=== PATIENT | male | born 1965 | race Two or more races ===

== ENCOUNTER 2023-09-29 08:21 | Emergency (ER) | payer OTHER ==
[~2023-09-29] VITALS: Ht 170.2 cm; Wt 63.6 kg
[~2023-09-29 08:21] MED LIST: TRAM50TA2 OR
[2023-09-29 08:52] VITALS: BP 120/73; PULSE 98; RESP 18; TEMP 98; O2SAT 100
== END 2023-09-29 09:07 | disposition home or self-care (01) ==
LOC: ER 08:21
DX: S60.221A Contusion of right hand, initial encounter (principal); X58.XXXA Exposure to other specified factors, initial encounter; Y93.01 Activity, walking, marching and hiking; Y92.89 Other specified places as the place of occurrence of the external cause; Y99.8 Other external cause status
CPT/HCPCS: 73130